=== PATIENT | male | born 1970 | race Caucasian/White ===

== ENCOUNTER 2017-02-25 17:01 | Inpatient (IN) | payer OTHER ==
[~2017-02-25] VITALS: Ht 191 cm; Wt 101.2 kg
[2017-02-25 17:12] VITALS: BP 168/82
[2017-02-25 17:49] LABS: HEMATOCRIT 36.4 % (42.0-52.0); HEMOGLOBIN 11.9 g/dl (14.0-18.0); MEAN CORPUSCULAR HGB 26.8 pg (27.0-31.0); MEAN CORPUSCULAR HGB CONC 32.7 g/dl (33.0-37.0); PLATELET COUNT AUTOMATED 33 10*3/uL (130-400); RED BLOOD COUNT 4.44 10*6/uL (4.50-5.90); RED CELL DISTRI WIDTH 16.6 % (0-14.5)
[2017-02-25 17:56] VITALS: BP 135/63
[2017-02-25 18:04] LABS: ALBUMIN 3.2 gm/dl (3.1-4.5); ALKALINE PHOSPHATASE 174 U/L (45-117); BUN 14 mg/dl (7-24); CHLORIDE 102 mmol/L (98-107); CREATININE 1.02 mg/dL (0.70-1.30); POTASSIUM 3.5 mmol/L (3.5-5.1); SGOT/AST 99 IU/L (3-35); SGPT/ALT 60 U/L (12-78); SODIUM 134 mmol/L (136-145); TOTAL PROTEIN 7.1 gm/dL (6.4-8.2); TROPONIN I 0.039 ng/ml (<0.045)
[2017-02-25 18:09] LABS: TOTAL CELLS COUNTED 100 #CELLS
[2017-02-25 18:10] LABS: PLATELET SUFFICIENCY LOW (NORMAL)
[2017-02-25 18:30] VITALS: BP 152/74; BP 155/77
[2017-02-25] MEDS ORDERED: ATIVAN1 MG PO (18:53)
[2017-02-25] MEDS ORDERED: ZOFRAN8 M1 PO (18:54)
[2017-02-25] MEDS ORDERED: CONSTULOSE10 GM/151 PO (18:54)
[2017-02-25] MEDS ORDERED: LASIX40 MG PO (18:55)
[2017-02-25] MEDS ORDERED: PROTONIX40 MG PO (18:55)
[2017-02-25] MEDS ORDERED: ALDACTONE100 MG PO (18:55)
[2017-02-25] MEDS ORDERED: KEPPRA1000 MG PO (18:56)
[2017-02-25] MEDS ORDERED: BACTRIM 400-801 EACH PO (18:56)
[2017-02-25] MEDS ORDERED: SODIUM BICARBO650 MG PO (18:57)
[2017-02-25] MEDS ORDERED: PEPCID20 MG PO (18:58)
[2017-02-25] MEDS ORDERED: OXCARBAZEPINE300 M1 PO (18:59)
[2017-02-25 19:22] LABS: BILIRUBIN NEGATIVE (NEGATIVE); BLOOD NEGATIVE (NEGATIVE); CLARITY CLEAR (CLEAR); COLOR YELLOW (YELLOW); GLUCOSE NEGATIVE (NEGATIVE); KETONE NEGATIVE (NEGATIVE); LEUKO ESTERASE NEGATIVE (NEGATIVE); NITRITE NEGATIVE (NEGATIVE); PH 6.5 (5.0-9.0); SPECIFIC GRAVITY <= 1.005 (1.005-1.030)
[2017-02-25 19:30] LABS: URINE AMPHETAMINES < 1000 (1000ng/ml); URINE BARBITURATES < 200 (200ng/ml); URINE BENZODIAZEPINES < 200 (200ng/ml); URINE CANNABINOIDS (THC) < 50 (50ng/ml); URINE COCAINE < 300 (300ng/ml); URINE METHADONE < 300 (300ng/ml); URINE OPIATES < 300 (300ng/ml); URINE PHENCYCLIDINE < 25 (25ng/ml)
[2017-02-25 19:40] LABS: BACTERIA TRACE; EPITHELIAL CELLS 0-2; RBC 0-2 rbc/hpf (0-2); WBC 0-2 wbc/hpf (0-5)
[2017-02-25 20:00] VITALS: BP 150/78
[2017-02-26] VITALS: BP 157/84
[2017-02-26 04:00] VITALS: BP 165/80
[2017-02-26 08:00] VITALS: BP 164/78
[2017-02-26 12:00] VITALS: BP 136/78
[2017-02-26 16:00] VITALS: BP 154/87
[2017-02-26 20:00] VITALS: BP 137/76
[2017-02-27] VITALS: BP 120/57
[2017-02-27 08:00] VITALS: BP 134/68
[2017-02-27 12:00] VITALS: BP 132/66
[2017-02-27 16:00] VITALS: BP 127/67
[2017-02-27 20:00] VITALS: BP 153/75
[2017-02-28] VITALS: BP 139/68
[2017-02-28 08:00] VITALS: BP 119/72
== END 2017-02-28 12:00 | disposition short-term general hospital (02) | DRG 897 ==
LOC: ED 17:01 → 5E 17:51 → EDHOLD 17:51 → ICCU 17:51 → 5E 18:02 → ICCU 18:26 → 5E 02-26 14:07
PROVIDERS: Physician Assistant; ADMIT Internal Medicine
DX: F10.239 Alcohol dependence with withdrawal, unspecified (principal); R65.10 Systemic inflammatory response syndrome (SIRS) of non-infectious origin without acute organ dysfunction; E44.0 Moderate protein-calorie malnutrition; K70.30 Alcoholic cirrhosis of liver without ascites; I69.351 Hemiplegia and hemiparesis following cerebral infarction affecting right dominant side; E87.1 Hypo-osmolality and hyponatremia; G40.909 Epilepsy, unspecified, not intractable, without status epilepticus; D64.9 Anemia, unspecified; R74.0 Nonspecific elevation of levels of transaminase and lactic acid dehydrogenase [LDH]; I10 Essential (primary) hypertension; F17.210 Nicotine dependence, cigarettes, uncomplicated; Z79.899 Other long term (current) drug therapy; Z82.49 Family history of ischemic heart disease and other diseases of the circulatory system; Z68.27 Body mass index [BMI] 27.0-27.9, adult